=== PATIENT | female | born 1995 | race Caucasian/White ===

== ENCOUNTER 2019-08-11 05:25 | Inpatient (IN) | payer OTHER ==
[~2019-08-11] VITALS: Ht 157.5 cm; Wt 122.5 kg
[2019-08-11] MEDS ORDERED: OXYTOCIN 20 UNITS/LACT RINGERS 1,000 ML IV ONE (06:52)
[2019-08-11] MEDS ORDERED: OXYTOCIN 30 UNITS/LACT RINGERS 500 ML IV ONE ×2 (06:52→22:55)
[2019-08-11 06:53] LABS: APPEARANCE,URINE CLOUDY (CLEAR); BILIRUBIN,URINE NEGATIVE (NEGATIVE); GLUCOSE, URINE (UA) NEGATIVE (NEGATIVE); KETONES,URINE 15 mg/dL (NEGATIVE); LEUKOCYTE ESTERASE ,URINE MODERATE (NEGATIVE); NITRATE,URINE NEGATIVE (NEGATIVE); OCCULT BLOOD,URINE MODERATE (NEGATIVE); PROTEIN,URINE SEE CONFIRM (NEGATIVE); UROBILINOGEN,URINE 0.2 mg/dL (<=1.0)
[2019-08-11 07:00] LABS: BACTERIA,URINE Many /HPF (None Seen); SQUAMOUS EPITHELIAL CELL,UR Many /LPF (None Seen); SULFOSALICYLIC ACID,URINE 3+ (Negative)
[2019-08-11] MEDS ORDERED: CITRIC ACID/SODIUM CITRATE 30 ML SOLUTION UDCUP PO PRN (07:00)
[2019-08-11] MEDS ORDERED: LIDOCAINE/PF 1% 30 ML VIAL INJ PRN ×2 (07:00→23:00)
[2019-08-11] MEDS ORDERED: FentaNYL CITRATE-PF 100 MCG/2 ML VIAL IVP PRN (07:00)
[2019-08-11] MEDS ORDERED: METOCLOPRAMIDE HCL 5 MG/ML 2 ML VIAL IVP PRN (07:00)
[2019-08-11] MEDS ORDERED: TERBUTALINE SULFATE 1 MG/ML VIAL SQ PRN (07:00)
[2019-08-11] MEDS: RINGERS SOLUTION,LACTATED 1,000 ML IV SCH ×3 (07:15→21:58)
[2019-08-11 07:23] LABS: BASOPHILS % (AUTO) 0.4 % (0.0-2.0); EOSINOPHILS % (AUTO) 0 % (1.0-6.0); HEMATOCRIT 39.6 % (36-46); HEMOGLOBIN 14.1 g/dL (12.0-16.0); LYMPHOCYTES # (AUTO) 0.8 K/uL (1.0-4.8); LYMPHOCYTES % (AUTO) 10.2 % (22.0-44.0); MEAN CORPUSCULAR HEMOGLOBIN 32.2 pg (26.0-34.0); MEAN CORPUSCULAR HGB CONC 35.7 G/dL (31.0-37.0); MEAN CORPUSCULAR VOLUME 90 fL (80-100); MONOCYTES # (AUTO) 0.4 K/uL (0.1-1.0); MONOCYTES % (AUTO) 5.2 % (2.0-9.0); NEUTROPHILS # (AUTO) 6.8 K/uL (1.8-7.7); NEUTROPHILS % (AUTO) 84.2 % (40.0-70.0); PLATELET COUNT (AUTO)-OB 250 K/uL (150-450); RED BLOOD CELL COUNT(AUTO) 4.39 MIL/uL (4.00-5.20); RED CELL DISTRIBUTION WIDTH 14.1 % (11.5-14.5)
[2019-08-11 07:31] LABS: ANION GAP 12 mmol/L (8-16); CARBON DIOXIDE 21 mmol/L (22-29); CHLORIDE 105 mmol/L (98-107); GLOMERULAR FILTR. RATE CALC > 60 mL/min (>60); GLUCOSE,RANDOM 84 mg/dL (70-110); SODIUM SERUM 138 mmol/L (136-145); UREA NITROGEN, BLOOD 13 mg/dL (7-18)
[2019-08-11 07:38] LABS: ALANINE AMINOTRANSFERASE 13 U/L (12-78); ALBUMIN 2.7 g/dL (3.4-5.0); ALKALINE PHOSPHATASE 188 U/L (46-116); ASPARTATE AMINOTRANSFERASE 16 U/L (15-37); BILIRUBIN,TOTAL 0.8 mg/dL (0.1-1.0); TOTAL PROTEIN, SERUM 6.9 g/dL (6.4-8.2); URIC ACID 6.7 mg/dL (2.6-7.2)
[2019-08-11 08:11] VITALS: BP 136/94
[2019-08-11] MEDS ORDERED: ROPIVACAINE HCL/PF 0.2% 100 ML ED ONE (08:55)
[2019-08-11] MEDS ORDERED: OXYTOCIN 30 UNITS/LACT RINGERS 500 ML IV PRN (10:34)
[2019-08-11] MEDS ORDERED: INFLUENZA VIRUS VACCINE QVS 2019-20 (3YR+)/PF 60 MCG/0.5 ML SYRINGE IM ONE (10:45)
[2019-08-11] MEDS ORDERED: AMPICILLIN SODIUM 2 GM/NS 100 ML IV ONE (10:45)
[2019-08-11] MEDS: AMPICILLIN SODIUM 1 GM/NS 50 ML IV SCH ×2 (16:20→19:58)
[2019-08-11] MEDS ORDERED: ROPIVACAINE HCL/PF 0.2% 100 ML ED PRN (17:08)
[2019-08-11] MEDS ORDERED: NALBUPHINE HCL 10 MG/ML VIAL IVP PRN (17:15)
[2019-08-11] MEDS ORDERED: ONDANSETRON HCL 4 MG/2 ML VIAL IVP PRN (17:15)
[2019-08-11] MEDS ORDERED: DiphenhydrAMINE HCL 50 MG/ML VIAL IVP PRN (17:15)
[2019-08-11] MEDS ORDERED: MINERAL OIL 30 ML UDCUP VG ONE (19:00)
[2019-08-11] MEDS ORDERED: AZITHROMYCIN 250 MG in SODIUM CHLORIDE 0.9% 150 ML IV ONE (22:15)
[2019-08-11] MEDS ORDERED: DEXTROSE 5% IV ONE (22:30)
[2019-08-11] MEDS ORDERED: WATER IV ONE (22:30)
[2019-08-11] MEDS ORDERED: GENTAMICIN SULFATE IV ONE (22:30)
[2019-08-11] MEDS ORDERED: LANOLIN 7 GM OINTMENT TP PRN (23:00)
[2019-08-11] MEDS ORDERED: MAGNESIUM HYDROXIDE SUSPENSION 30 ML UDCUP PO PRN (23:00)
[2019-08-11] MEDS ORDERED: GLYCERIN/WITCH HAZEL LEAF 40 PADS JAR TP PRN (23:00)
[2019-08-11] MEDS ORDERED: GuaiFENesin/D-METHORPHAN/PHENYLEPH 5 ML LIQUID ORAL.SYG PO PRN (23:00)
[2019-08-11] MEDS ORDERED: OxyCODONE HCL/ACETAMINOPHEN 5-325 MG TABLET PO PRN ×2 (23:00)
[2019-08-11] MEDS ORDERED: BENZOCAINE/MENTHOL LOZENGE PO PRN (23:00)
[2019-08-11] MEDS ORDERED: BENZOCAINE 20%/MENTHOL 56 GM SPRAY CANISTER TP PRN (23:00)
[2019-08-12 06:14] LABS: BASOPHILS % (AUTO) 0.3 % (0.0-2.0); EOSINOPHILS % (AUTO) 0 % (1.0-6.0); HEMATOCRIT 34.8 % (36-46); HEMOGLOBIN 12.1 g/dL (12.0-16.0); LYMPHOCYTES # (AUTO) 1.3 K/uL (1.0-4.8); LYMPHOCYTES % (AUTO) 8.4 % (22.0-44.0); MEAN CORPUSCULAR HEMOGLOBIN 31.2 pg (26.0-34.0); MEAN CORPUSCULAR HGB CONC 34.6 G/dL (31.0-37.0); MEAN CORPUSCULAR VOLUME 90 fL (80-100); MONOCYTES # (AUTO) 1.5 K/uL (0.1-1.0); MONOCYTES % (AUTO) 9.8 % (2.0-9.0); NEUTROPHILS # (AUTO) 12.3 K/uL (1.8-7.7); NEUTROPHILS % (AUTO) 81.5 % (40.0-70.0); PLATELET COUNT (AUTO)-OB 242 K/uL (150-450); RED BLOOD CELL COUNT(AUTO) 3.86 MIL/uL (4.00-5.20); RED CELL DISTRIBUTION WIDTH 14.4 % (11.5-14.5)
[2019-08-13] MEDS ORDERED: IBUP-2070 PO (11:10)
[2019-08-13] MEDS ORDERED: PREN-134 PO (11:13)
[2019-08-13] MEDS ORDERED: DOCU-275 PO (11:15)
[2019-08-13] MEDS ORDERED: ACET1TAB12 PO (11:43)
[2019-08-15 00:09] LABS: QUANTIFERON+, Nil Value 0.02 IU/mL; QUANTIFERON+,Mitogen Value 2.95 IU/mL; QUANTIFERON+,TB1 Antigen Value 3.23 IU/mL; QUANTIFERON, TB GOLD PLUS Positive (Negative)
== END 2019-08-13 13:10 | disposition home or self-care (01) | DRG 560 ==
LOC: OBSVTOIN 05:25 → 4S 05:25
PROVIDERS: ADMIT Obstetrics & Gynecology; ATTEND Obstetrics & Gynecology
PROC: 10E0XZZ Delivery of Products of Conception, External Approach (ICD-10-PCS; principal; 2019-08-11)
PROC: 0KQM0ZZ Repair Perineum Muscle, Open Approach (ICD-10-PCS; 2019-08-11)
PROC: 3E0R3BZ Introduction of Anesthetic Agent into Spinal Canal, Percutaneous Approach (ICD-10-PCS; 2019-08-11)
PROC: 00HU33Z Insertion of Infusion Device into Spinal Canal, Percutaneous Approach (ICD-10-PCS; 2019-08-11)
DX: O77.0 Labor and delivery complicated by meconium in amniotic fluid (principal); O70.1 Second degree perineal laceration during delivery; Z3A.42 42 weeks gestation of pregnancy; Z37.0 Single live birth
CPT/HCPCS: 76811; 80307; 84550; 86480; 86592; 86593; 86762; 86780; 86850; 86900; 86901; 87086; 87340; 88307; 89060; 93306; J0290; J0456; J1580; J2590; J2795; J7050; J7060; J7120